=== PATIENT | female | born 1995 | race Caucasian/White ===

== ENCOUNTER 2016-07-10 14:45 | Emergency (ER) | payer BC ==
[~2016-07-10] VITALS: Wt 57.0 kg
[~2016-07-10 14:45] MED LIST: CALC-84 PO; FERR-31 PO; PREN1TAB62 PO
--- NOTE | 2016-07-10 15:19 | ERD ---
ER Documentation Chief Complaint Date/Time DATE: 07/10/16 TIME: 15:16 Chief Complaint vag bleed for 1 day 8 wks preg. mild abd cramping HPI Patient is a 20-year-old female who presents to the ED with vaginal bleeding and pelvic pain. She is , last normal menstrual period was 05/05/17. She states that she developed light bleeding last night and mild pelvic pain. She states that she has not filled 1 pad yet of blood. She denies fever or chills. She denies nausea, vomiting or diarrhea. She denies abdominal pain. She denies chest pain, cough or shortness of breath. She denies leg pain or swelling. She has no other complaints today. Patient does have an OB doctor but is unsure of name and name of clinic. ROS All systems reviewed and are negative except as per history of present illness. Medications Home Meds Active Scripts Nitrofurantoin Monohyd Macrocr* (Macrobid*) 100 Mg Capsr, 100 MG PO BID for 5 Days, CAP Prov:EBEN GIRALDO PA-C 07/10/16 Reported Medications Ferrous Sulfate (Iron Supplement) 1 Tab Tablet, 1 TAB PO DAILY 04/24/15 Calcium Carbonate-Vitamin D3 (Calcium 500 + D Tablet) 1 Each Tablet, 1 TAB PO DAILY, TAB 02/15/14 Vit-Iron Fumarate-FA ( Vitamin Tablet) 1 Each Tablet, 1 TAB PO DAILY, TAB 02/15/14 Allergies Allergies: Coded Allergies: No Known Allergy (Unverified , 02/15/14) PMhx/Soc Medical and Surgical Hx: pt denies Medical Hx, pt denies Surgical Hx History of Surgery: No Anesthesia Reaction: No Hx Neurological Disorder: No Hx Respiratory Disorders: No Hx Cardiac Disorders: No Hx Psychiatric Problems: No Hx Miscellaneous Medical Probl: No Hx Alcohol Use: No Hx Substance Use: No Hx Tobacco Use: No Smoking Status: Never smoker Physical Exam Vitals Vital Signs Date Time Temp Pulse Resp B/P Pulse Ox O2 Delivery O2 Flow Rate FiO2 07/10/16 14:51 97.9 105 20 112/65 98 Physical Exam GENERAL: Well-developed, well-nourished female. Appears in no acute distress. HEAD: Normocephalic, atraumatic. EYES: Pupils are equally reactive bilaterally. EOMs grossly intact. No conjunctival erythema. ENT: Moist mucous membranes. No uvula deviation. No kissing tonsils. No exudates. NECK: Supple. No lymphadenopathy or thyromegaly. No meningismus. negative kernig. negative brudinski. LUNG: Clear to auscultation bilaterally. No rhonchi, wheezing, rales or coarse breath sounds. HEART: Regular rate and rhythm. No murmurs, rubs or gallops. ABDOMEN: No scars, ecchymosis or rashes noted. Soft, nontender, and nondistended. Positive bowel sounds in all four quadrants. No rebound tenderness , no guarding. (-) McBurneys point tenderness. No CVA tenderness. BACK: No midline tenderness. Extremities: Equal pulses bilaterally. No peripheral clubbing, cyanosis or edema. No unilateral leg swelling. NEUROLOGIC: Alert and oriented. Moving all four extremities. 5/5 strength in all extremities. Normal speech. Steady gait. SKIN: Normal color. Warm and dry. No rashes or lesions. Capillary refill < 2 seconds Result Diagram: 07/10/16 1505 Results 24 hrs Laboratory Tests Test 07/10/16 15:05 Basophils # 0.110^3/ul Basophils % 0.7% Beta HCG, Quantitative 31274.0mIU/ml Eosinophils # 0.210^3/ul Eosinophils % 2.7% Hematocrit 40.5% Hemoglobin 13.5g/dl Lymphocytes # 2.010^3/ul Lymphocytes % 25.3% Mean Corpuscular Hemoglobin 29.2pg Mean Corpuscular Hemoglobin Concent 33.4g/dl Mean Corpuscular Volume 87.3fl Mean Platelet Volume 10.4fl Monocytes # 0.310^3/ul Monocytes % 4.2% Neutrophils # 5.310^3/ul Neutrophils % 67.1% Nucleated Red Blood Cells # 0.010^3/ul Nucleated Red Blood Cells % 0.0/100WBC Platelet Count 61732^3/UL Red Blood Count 4.6410^6/ul Red Cell Distribution Width 13.8% Urine Bacteria MODERATE Urine Bilirubin NEGATIVE Urine Clarity CLOUDY Urine Color YELLOW Urine Glucose NEGATIVE% Urine Hemoglobin 3+ Urine Ketones NEGATIVE Urine Leukocyte Esterase TRACE Urine Microscopic RBC 5-10/HPF Urine Microscopic WBC 5-10/HPF Urine Nitrite NEGATIVE Urine Specific Teller 1.025 Urine Squamous Epithelial Cells MANY Urine Total Protein TRACE Urine Urobilinogen 0.2 E.U./dL Urine pH 6.0 White Blood Count 7.910^3/ul Procedures/MDM ER COURSE: I kept the patient and/or family informed of laboratory and diagnostic imaging results throughout the emergency room course. EKG, MONITORS, & DIAGNOSTIC IMAGING: [place] [id number] Radiology Main Line: [phone] DIAGNOSTIC IMAGING REPORT Patient: AEBBA GRAHAM : 1995 Age: 20 Sex: F MR #: [id number] DOS: 07/10/16 1503 Ordering MD: EBEN GIRALDO PA-C Location: [facility] Room/Bed: PROCEDURE: US Pelvis. CLINICAL INDICATION: vaginal bleeding TECHNIQUE: Multiple sonographic images of the pelvis were obtained utilizing a transabdominal and endovaginal technique. The images were reviewed on a PACS workstation. COMPARISON: None. FINDINGS: There is a cystic structure within the endometrium measuring 2.0 cm which would correspond to a calculated gestational age of 6 weeks and 6 days. There is a questionable pole measuring 0.2 cm. A yolk sac is not definitely visualized. There is a large complex hypoechoic area adjacent gestational sac, measuring 3.8 cm, consistent with subchorionic hemorrhage. The right ovary measures 3.1 x 1.8 x 2.0 cm. The left ovary was not visualized. No significant free fluid is present within the pelvis. RPTAT: AA IMPRESSION: Cystic structure within the endometrium corresponding to a 6 weeks and 6 days gestation. A questionable pole is seen. No yolk sac is visualized. The findings likely represent a nonviable . Large area of subchorionic hemorrhage. Left ovary not visualized. Close followup ultrasound and hCG is recommended. .Alexander Pino MD, MD Date Time Electronically viewed and signed by .Alexander Pino MD, MD on 07/10/2016 16: 28 .S/ CC: EBEN GIRALDO PA-C LAB INTERPRETATION: CBC showed no evidence of systemic infection or severe anemia. UA showed trace leukocytes, no nitrites BHC.0 RH: O+ MEDICAL DECISION MAKING: This is a 20-year-old female who presents with vaginal bleeding and pelvic pain. Vital signs were reviewed. Patient is afebrile. Patient is not hypoxic. Patient's ultrasound revealed possible nonviable . Low suspicion for ovarian torsion, PID, tuboovarian abscess, ectopic , bowel obstruction, pyelonephritis,appendicitis, UTI, nephroliathisis, septic stone, obstructed stone. Low suspicion for ectopic , , molar , endometriosis, PID, placenta previa, placenta abruptia, preeclampsia , eclampsia, anemia, endometritis, cervicitis. DISCHARGE: At this time, patient is stable for discharge and outpatient management with no new complaints during the ER course. Patient sent home with macrobid Patient to follow-up with her OB doctor in 2 days or return to the ED in 2 days for recheck of BHCG and ultrasound Patient will be discharged home with instructions to recheck for new or worsening symptoms such as fever, nausea, weakness, LOC and to follow up with primary care in the next 1-2 days. Patient was advised to return to the ER for any new or worsening symptoms. Plan was discussed and patient and/or family understands and agrees. Home instructions were given. Departure Diagnosis: Primary Impression: Vaginal bleeding in patient at less than 20 weeks gestation Condition: Stable EBEN GIRALDO PA-C Jul 10, 2016 15:19
[2016-07-10 15:36] LABS: BASOPHIL # 0.1 10^3/ul (0.0-0.1); BASOPHILS % 0.7 % (0.0-2.0); EOSINOPHILS # 0.2 10^3/ul (0.0-0.5); EOSINOPHILS % 2.7 % (0.0-7.0); HEMATOCRIT 40.5 % (37.0-47.0); HEMOGLOBIN 13.5 g/dl (12.0-16.0); LYMPHOCYTES % 25.3 % (18.0-55.0); MEAN CORPUSCULAR HEMOGLOBIN 29.2 pg (29.0-33.0); MEAN CORPUSCULAR HGB CONC 33.4 g/dl (32.0-37.0); MEAN CORPUSCULAR VOLUME 87.3 fl (72.0-104.0); MEAN PLATELET VOLUME 10.4 fl (7.4-10.4); MONOCYTE # 0.3 10^3/ul (0.3-0.9); MONOCYTES % 4.2 % (0.0-13.0); NEUTROPHIL # 5.3 10^3/ul (1.6-7.5); NEUTROPHILS % 67.1 % (30.0-74.0); PLATELET COUNT 209 10^3/UL (140-440); RED BLOOD COUNT 4.64 10^6/ul (4.20-5.40); RED CELL DISTRIBUTION WIDTH 13.8 % (11.5-14.5); UNCORRECTED WBC 7.9 10^3/ul (4.8-10.8); WHITE BLOOD COUNT 7.9 10^3/ul (4.8-10.8)
[2016-07-10 15:44] LABS: CONDITION 1
[2016-07-10 15:48] LABS: ADD UMIC YES; URINE BILIRUBIN (Dip) NEGATIVE (NEGATIVE); URINE BLOOD (Dip) 3+ (NEGATIVE); URINE GLUCOSE (Dip) NEGATIVE (NEGATIVE); URINE KETONES (Dip) NEGATIVE (NEGATIVE); URINE LEUKOCYTE ESTERASE (Dip) TRACE (NEGATIVE); URINE NITRITE (Dip) NEGATIVE (NEGATIVE); URINE TOTAL PROTEIN (Dip) TRACE (NEGATIVE); URINE UROBILINOGEN (Dip) 0.2 E.U./dL (0.1-1.0)
[2016-07-10 16:01] LABS: URINE COLOR YELLOW (YELLOW)
[2016-07-10 16:04] LABS: BACTERIA,URINE MODERATE; SQUAMOUS EPITHELIAL CELL,UR MANY
--- NOTE | 2016-07-10 16:29 | RADRPT ---
PROCEDURE: US Pelvis. CLINICAL INDICATION: vaginal bleeding TECHNIQUE: Multiple sonographic images of the pelvis were obtained utilizing a transabdominal and endovaginal technique. The images were reviewed on a PACS workstation. COMPARISON: None. FINDINGS: There is a cystic structure within the endometrium measuring 2.0 cm which would correspond to a calc ulated gestational age of 6 weeks and 6 days. There is a questionable pole measuring 0.2 cm. A yolk sac is not definitely visualized. There is a large complex hypoechoic area adjacent gestational sac, measuring 3.8 cm, consistent with subchorionic hemorrhage. The right ovary measures 3.1 x 1.8 x 2.0 cm. The left ovary was not visualized. No significant free fluid is present within the pelvis. RPTAT: AA IMPRESSION: Cystic structure within the endometrium corresponding to a 6 weeks and 6 days gestation. A question able pole is seen. No yolk sac is visualized. The findings likely represent a nonviable preg demario. Large area of subchorionic hemorrhage. Left ovary not visualized. Close followup ultrasound and hCG is recommended. .Alexander Pino MD, MD Date Time Electronically viewed and signed by .Alexander Pino MD, on 07/10/2016 16:28 .S/
[2016-07-10] MEDS ORDERED: NITR-58 PO (16:58)
== END 2016-07-10 17:03 | disposition home or self-care (01) ==
LOC: FTE 14:45
DX: O20.9 Hemorrhage in early pregnancy, unspecified (principal); R10.2 Pelvic and perineal pain; Z3A.01 Less than 8 weeks gestation of pregnancy
CPT/HCPCS: 36415; 76801; 76817; 81001; 81003; 84702; 85025; 86900; 86901

== ENCOUNTER 2016-07-10 21:25 | Emergency (ER) | payer BC ==
[~2016-07-10] VITALS: Ht 162.6 cm; Wt 59.0 kg
[~2016-07-10 21:25] MED LIST changes: +NITR-58 PO
[2016-07-10 21:27] VITALS: Ht 162.6 cm; Wt 59.0 kg
[2016-07-10] MEDS ORDERED: ACETAMINOPHEN 325 MG TAB PO ONE (22:00)
[2016-07-10 22:31] LABS: BASOPHILS % 0.4 % (0.0-2.0); EOSINOPHILS # 0.3 10^3/ul (0.0-0.5); EOSINOPHILS % 3.3 % (0.0-7.0); HEMATOCRIT 36.6 % (37.0-47.0); HEMOGLOBIN 12.4 g/dl (12.0-16.0); LYMPHOCYTES # 2.7 10^3/ul (0.8-2.9); LYMPHOCYTES % 29.5 % (18.0-55.0); MEAN CORPUSCULAR HEMOGLOBIN 29.4 pg (29.0-33.0); MEAN CORPUSCULAR HGB CONC 33.9 g/dl (32.0-37.0); MEAN CORPUSCULAR VOLUME 86.6 fl (72.0-104.0); MEAN PLATELET VOLUME 10.5 fl (7.4-10.4); MONOCYTE # 0.5 10^3/ul (0.3-0.9); MONOCYTES % 5.1 % (0.0-13.0); NEUTROPHIL # 5.7 10^3/ul (1.6-7.5); NEUTROPHILS % 61.7 % (30.0-74.0); PLATELET COUNT 202 10^3/UL (140-440); RED BLOOD COUNT 4.23 10^6/ul (4.20-5.40); RED CELL DISTRIBUTION WIDTH 13.4 % (11.5-14.5); UNCORRECTED WBC 9.2 10^3/ul (4.8-10.8); WHITE BLOOD COUNT 9.2 10^3/ul (4.8-10.8)
[2016-07-10 22:34] LABS: CONDITION 1
--- NOTE | 2016-07-10 22:48 | ERD ---
ER Documentation Chief Complaint Date/Time DATE: 07/10/16 TIME: 22:46 Chief Complaint 7 wks , vag bleeding w/pelvic and back pain HPI 20-year-old female last menstrual period 05/05/2016 she is 3 comes in with increased vaginal bleeding and new-onset of pelvic pain after being discharged earlier today. Patient apparently had a abnormal ultrasound, she went home and she developed sharp pelvic pain, and heavy vaginal bleeding including passing of clots. She states that she has had to change her pad approximately every 30 minutes. She has not had any fevers or chills, nausea, vomiting. ROS All systems reviewed and are negative except as per history of present illness. Medications Home Meds Active Scripts Nitrofurantoin Monohyd Macrocr* (Macrobid*) 100 Mg Capsr, 100 MG PO BID for 5 Days, CAP Prov:EBEN GIRALDO PA-C 07/10/16 Reported Medications Ferrous Sulfate (Iron Supplement) 1 Tab Tablet, 1 TAB PO DAILY 04/24/15 Calcium Carbonate-Vitamin D3 (Calcium 500 + D Tablet) 1 Each Tablet, 1 TAB PO DAILY, TAB 02/15/14 Vit-Iron Fumarate-FA ( Vitamin Tablet) 1 Each Tablet, 1 TAB PO DAILY, TAB 02/15/14 Allergies Allergies: Coded Allergies: No Known Allergy (Unverified , 02/15/14) PMhx/Soc Medical and Surgical Hx: pt denies Medical Hx, pt denies Surgical Hx History of Surgery: No Anesthesia Reaction: No Hx Neurological Disorder: No Hx Respiratory Disorders: No Hx Cardiac Disorders: No Hx Psychiatric Problems: No Hx Miscellaneous Medical Probl: No Hx Alcohol Use: No Hx Substance Use: No Hx Tobacco Use: No Smoking Status: Never smoker Physical Exam Vitals Vital Signs Date Time Temp Pulse Resp B/P Pulse Ox O2 Delivery O2 Flow Rate FiO2 07/10/16 21:27 97.7 104 20 110/67 100 Physical Exam General: Well-developed, well-nourished. The patient appears in no acute distress. HEENT: Head is normocephalic, atraumatic. No scleral icterus. Neck: Supple. Nontender. Lungs: Clear to auscultation. Normal air movement. Heart: Regular rate and rhythm. S1 and S2 are normal. No murmurs, gallops, or rubs. Abdomen: Soft, mild suprapubic tenderness nondistended. Bowel sounds are normoactive. Extremities: No clubbing or cyanosis. Normal pulses. Moving extremities x 4. No weakness. Neurologic: Alert and oriented 3. No focal deficits. Skin: Normal turgor. No rash or lesions. Result Diagram: 07/10/162201 Results 24 hrs Laboratory Tests Test 07/10/16 22:02 07/10/16 22:21 Basophils # 0.010^3/ul Basophils % 0.4% Beta HCG, Quantitative 00094.0mIU/ml Blood Morphology Comment Eosinophils # 0.310^3/ul Eosinophils % 3.3% Hematocrit 36.6% Hemoglobin 12.4g/dl Lymphocytes # 2.710^3/ul Lymphocytes % 29.5% Mean Corpuscular Hemoglobin 29.4pg Mean Corpuscular Hemoglobin Concent 33.9g/dl Mean Corpuscular Volume 86.6fl Mean Platelet Volume 10.5fl Monocytes # 0.510^3/ul Monocytes % 5.1% Neutrophils # 5.710^3/ul Neutrophils % 61.7% Nucleated Red Blood Cells # 0.010^3/ul Nucleated Red Blood Cells % 0.0/100WBC Platelet Count 93376^3/UL Red Blood Count 4.2310^6/ul Red Cell Distribution Width 13.4% White Blood Count 9.210^3/ul Urine Bacteria OCCASIONAL Urine Bilirubin NEGATIVE Urine Clarity CLOUDY Urine Color LT. YELLOW Urine Glucose NEGATIVE% Urine Hemoglobin 3+ Urine Ketones NEGATIVE Urine Leukocyte Esterase NEGATIVE Urine Microscopic RBC >200/HPF Urine Microscopic WBC 0-2/HPF Urine Nitrite NEGATIVE Urine Specific [place] <=1.005 Urine Squamous Epithelial Cells OCCASIONAL Urine Total Protein TRACE Urine Urobilinogen 0.2 E.U./dL Urine pH 6.5 Current Medications Medications (Trade) Dose Ordered Sig/Corrina Route PRN Reason Start Time Stop Time Status Last Admin Dose Admin Acetaminophen (Tylenol Tab) 650 mg ONCE ONCE PO 07/10/16 22:00 07/10/16 22:01 DC 07/10/16 22:43 PROCEDURE: Ultrasound pelvis. CLINICAL INDICATION: Vaginal hemorrhage with . TECHNIQUE: Ultrasound examination of . COMPARISON: Today, about 7 hours ago. FINDINGS: Previously identified 5-uhvq-8-day intrauterine on today's examination , about 7 hours ago, is not seen, suggesting a completed . The endometrium is heterogeneous, otherwise nonspecific. Right ovary is unremarkable. Left ovary is not seen. No free fluid or adnexal mass. IMPRESSION: 1. Previously seen seen on examination 7 hours ago is not identified. 2. Findings suggest a completed . RPTAT: [facility]U Physician Briseida Date Time Electronically viewed and signed by Juliano Vizcaino Physician on 07/10/2016 22:59 RS/ CC: SASHA HERNANDEZ PA-C Procedures/[facility] 20-year-old female comes in with increased vaginal bleeding and pelvic pain, pelvic ultrasound was consistent with a complete compared to previous ultrasound that was done earlier today. She does not show any anemia, hemodynamic instability, infection. She was advised to follow-up with her OB early next week and to return if she has any worsening pain or bleeding. Departure Diagnosis: Primary Impression: Miscarriage Condition: Good SASHA HERNANDEZ PA-C Jul 10, 2016 22:48
--- NOTE | 2016-07-10 22:59 | RADRPT ---
PROCEDURE: Ultrasound pelvis. CLINICAL INDICATION: Vaginal hemorrhage with . TECHNIQUE: Ultrasound examination of . COMPARISON: Today, about 7 hours ago. FINDINGS: Previously identified 7-hbdi-3-day intrauterine on today's examination, about 7 hours ago, is not seen, suggesting a completed . The endometrium is heterogeneous, otherwise nonspecific. Right ovary is unremarkable. Left ovary i s not seen. No free fluid or adnexal mass. IMPRESSION: 1. Previously seen seen on examination 7 hours ago is not identified. 2. Findings suggest a completed . RPTAT: [facility] Physician Briseida Date Time Electronically viewed and signed by Physician Briseida on 07/10/2016 22:59 RS/
[2016-07-10 23:13] LABS: ADD UMIC YES; URINE BILIRUBIN (Dip) NEGATIVE (NEGATIVE); URINE BLOOD (Dip) 3+ (NEGATIVE); URINE COLOR LT. YELLOW (YELLOW); URINE GLUCOSE (Dip) NEGATIVE (NEGATIVE); URINE KETONES (Dip) NEGATIVE (NEGATIVE); URINE LEUKOCYTE ESTERASE (Dip) NEGATIVE (NEGATIVE); URINE NITRITE (Dip) NEGATIVE (NEGATIVE); URINE TOTAL PROTEIN (Dip) TRACE (NEGATIVE); URINE UROBILINOGEN (Dip) 0.2 E.U./dL (0.1-1.0)
[2016-07-10 23:29] LABS: BACTERIA,URINE OCCASIONAL; SQUAMOUS EPITHELIAL CELL,UR OCCASIONAL; URINE RBCS >200 /HPF (0)
[2016-07-10 23:59] VITALS: BP 112/65; PULSE 72; RESP 20; TEMP 98.3
== END 2016-07-11 | disposition home or self-care (01) ==
LOC: FTE 21:25
DX: O03.9 Complete or unspecified spontaneous abortion without complication (principal); R10.2 Pelvic and perineal pain
CPT/HCPCS: 36415; 76801; 81001; 84702; 85025; Z7502; Z7610; 81003

== ENCOUNTER 2018-10-13 01:56 | Emergency (ER) | payer BC ==
[~2018-10-13] VITALS: Ht 162.6 cm; Wt 71.4 kg
[~2018-10-13 01:56] MED LIST changes: +CALC-662 PO; -CALC-84 PO
[2018-10-13 02:00] VITALS: BP 113/72; PULSE 94; RESP 16; Ht 162.6 cm; Wt 71.4 kg
--- NOTE | 2018-10-13 05:27 | ERD ---
ER Documentation Chief Complaint Chief Complaint pt reports approx 6wks preg and having heavy bleeding HPI This is a 22-year-old female -0-1-3 who presents at roughly 6 weeks with complaints of vaginal bleeding since this morning. Last menstrual period was September 04, 2017. Admits to going through 2 pads today. Denies passing any clots. Admits to some lower pelvic cramping associated with vaginal bleeding. Admits to nausea with a couple episodes of nonbilious nonbloody vomiting. Denies fever, chills, diarrhea, constipation, hematemesis, hemoptysis, vaginal pain, severe abdominal pain, dysuria, hematuria, shortness of breath, trouble breathing and all other symptoms. Has not followed up with [facility] specialist. No history of ectopic . ROS All systems reviewed and are negative except as per history of present illness. Medications Home Meds Active Scripts Nitrofurantoin Monohyd Macrocr* (Macrobid*) 100 Mg Capsr, 100 MG PO BID for 5 Days, CAP Prov:EBEN GIRALDO PA-C 07/10/16 Reported Medications Ferrous Sulfate (Iron Supplement) 1 Tab Tablet, 1 TAB PO DAILY 04/24/15 Calcium Carbonate-Vitamin D3 (Calcium 500 + D Tablet) 1 Each Tablet, 1 TAB PO DAILY, TAB 02/15/14 Vit-Iron Fumarate-FA ( Vitamin Tablet) 1 Each Tablet, 1 TAB PO DAILY, TAB 02/15/14 Allergies Allergies: Coded Allergies: No Known Allergy (Unverified , 02/15/14) PMhx/Soc Medical and Surgical Hx: pt denies Medical Hx, pt denies Surgical Hx History of Surgery: No Anesthesia Reaction: No Hx Neurological Disorder: No Hx Respiratory Disorders: No Hx Cardiac Disorders: No Hx Psychiatric Problems: No Hx Miscellaneous Medical Probl: No Hx Alcohol Use: No Hx Substance Use: No Hx Tobacco Use: No Smoking Status: Never smoker FmHx Family History: No diabetes Physical Exam Vitals Vital Signs Date Temp Pulse Resp B/P (MAP) Pulse Ox O2 O2 Flow FiO2 Time Delivery Rate 10/13/18 98.1 94 16 113/72 99 02:00 (86) Physical Exam Physical Exam Vitals signs: Reviewed by me. General: Well developed, well nourished, in no acute distress. Patient is awake and alert. Head: Normocephalic, atraumatic. Eyes: Normal conjunctiva, Pupils PERRLA, EOM intact grossly ENT: Pharynx is clear, Moist mucous membranes, external ears, nose and mouth normal Neck: Supple, no masses, lymphadenopathy or JVD Respiratory: Clear to auscultation bilaterally with no wheezing, rhonchi, rales, no distress Cardiovascular: RRR, no murmurs, rubs, or gallops Abdominal: Soft, nondistended, no peritoneal signs, no rigidity, no surgical abdomen, bowel sounds present all 4 quadrants, nontender lengthy palpation all 4 quadrants, no suprapubic tenderness, McBurney's point nontender, no rebound tenderness Back: No midline tenderness. No flank tenderness Neurologic: Alert and oriented, moving all extremities, normal speech, no focal weakness, no cerebellar signs. Normal mentation Skin: warm and dry, No rash Psych: Normal mood Result Diagram: 10/13/18 0414 10/13/18 0414 Results 24 hrs Laboratory Tests Test 10/13/18 04:14 10/13/18 04:18 White Blood Count 9.2 10^3/ul Red Blood Count 4.36 10^6/ul Hemoglobin 12.6 g/dl Hematocrit 37.9 % Mean Corpuscular Volume 86.9 fl Mean Corpuscular Hemoglobin 28.9 pg Mean Corpuscular Hemoglobin Concent 33.2 g/dl Red Cell Distribution Width 12.9 % Platelet Count 278 10^3/UL Mean Platelet Volume 11.7 fl Immature Granulocytes % 0.300 % Neutrophils % 55.3 % Lymphocytes % 36.3 % Monocytes % 6.9 % Eosinophils % 0.8 % Basophils % 0.4 % Nucleated Red Blood Cells % 0.0 /100WBC Immature Granulocytes # 0.030 10^3/ul Neutrophils # 5.1 10^3/ul Lymphocytes # 3.4 10^3/ul Monocytes # 0.6 10^3/ul Eosinophils # 0.1 10^3/ul Basophils # 0.0 10^3/ul Nucleated Red Blood Cells # 0.0 10^3/ul Urine Color CLIF Urine Clarity CLOUDY Urine pH 6.0 Urine Specific [place] 1.031 Urine Ketones NEGATIVE mg/dL Urine Nitrite NEGATIVE mg/dL Urine Bilirubin NEGATIVE mg/dL Urine Urobilinogen 1+ mg/dL Urine Leukocyte Esterase TRACE Lu/ul Urine Microscopic RBC > 182 /HPF Urine Microscopic WBC 18 /HPF Urine Bacteria FEW /HPF Urine Mucus MANY /HPF Urine Hemoglobin 3+ mg/dL Urine Glucose NEGATIVE mg/dL Urine Total Protein 2+ mg/dl Sodium Level 145 mmol/L Potassium Level 3.5 mmol/L Chloride Level 110 mmol/L Carbon Dioxide Level 24 mmol/L Anion Gap 11 Blood Urea Nitrogen 7 mg/dl Creatinine 0.71 mg/dl Est Glomerular Filtrat Rate mL/min > 60 mL/min Glucose Level 109 mg/dl Calcium Level 9.7 mg/dl Total Bilirubin 0.2 mg/dl Direct Bilirubin 0.00 mg/dl Indirect Bilirubin 0.2 mg/dl Aspartate Amino Transf (AST/SGOT) 19 IU/L Alanine Aminotransferase (ALT/SGPT) 15 IU/L Alkaline Phosphatase 53 IU/L Total Protein 7.8 g/dl Albumin 4.3 g/dl Globulin 3.50 g/dl Albumin/Globulin Ratio 1.22 Beta HCG, Quantitative 40.6 mIU/ml POC Beta HCG, Qualitative POSITIVE Procedures/MDM EKG, MONITORS, & DIAGNOSTIC IMAGING: [place] [id number] Radiology Main Line: [phone] DIAGNOSTIC IMAGING REPORT Patient: ABEBA GRAHAM : 1995 Age: 22 Sex: F MR #: [id number] DOS: 10/13/18 0350 Ordering MD: MARA MARCOS PA-C Location: [facility] Room/Bed: PROCEDURE: US OB. CLINICAL INDICATION: Heavy vaginal bleeding. Positive test. LMP 09/04/18. TECHNIQUE: Transabdominal and transvaginal views of the pelvis are available for review. COMPARISON: US PELVIS 07/10/2016 FINDINGS: Uterine size was not provided, by my measurement is approximately 8.3 cm in length by 5.8 cm transverse by 4.4 cm AP. The endometrial stripe is uniform in appearance, by my measurement 12-13 mm in thickness on endovaginal imaging. There is no intrauterine gestational sac seen. The ovaries are symmetric and size and appearance. Right ovary measures 2.8 x 2.1 x 1.9 cm on transabdominal imaging. Left ovary measures 2.8 x 1.9 x 1.6 cm on endovaginal imaging. There is color and Doppler flow present within both ovaries. No separate adnexal mass or free fluid. IMPRESSION: No evidence of intrauterine gestation, adnexal mass or free fluid seen. In the setting of a positive test, differential could include very early gestational age or ongoing spontaneous ; an ectopic gestation is not excluded at this time. Recommend serial beta HCG levels , and short-term follow-up ultrasound could be obtained to further evaluate. Results were called to the ordering clinician Mara Marcos at time of dictation 0550 hours PST. RPTAT: [facility]SA[facility] Physician Lorenzo Date Time Electronically viewed and signed by Physician Lorenzo on 10/13/2018 05:52 RF/ CC: MARA MARCOS PA-C [id number] LAB INTERPRETATION: CBC shows no evidence of hemorrhage or infection Chemistry shows no evidence of significant electrolyte abnormalities or renal insufficiency Liver function test shows no evidence of acute biliary or hepatic dysfunction Urine positive Beta-hCG 40.6 Urinalysis remarkable for 18 WBCs, RBCs, trace leukocyte esterase, no nitrite Blood type O+ ER COURSE: Patient was offered Tylenol for pain but declines. The patient was stable throughout ED course. I kept the patient and/or family informed of laboratory and diagnostic imaging results throughout the emergency room course. The patient was promptly evaluated and a treatment plan was devised based on H&P and other data. This plan was discussed with the patient who agreed and had no further questions or concerns prior to discharge. MEDICAL DECISION MAKING: This is a 22 year-old female, G 5 p 3013, who presents with vaginal bleeding at roughly 6 weeks . Differentials include Intrauterine , early , threatened , spontaneous , missed or ectopic . Ultrasound does not confirms an intrauterine and states that this could possibly an early , missed or ectopic pregnanc y. Ectopic not visualized on ultrasound. Given patient's low hCG reading in the emergency department at four 0.6 I have a higher suspicion that this is a missed . This was discussed with patient. Patient is O+ and does not require any rhogam. Pt is hemodynamically stable. No symptoms of dehydration. Low suspicious for sepsis. Patient will need to repeat quantitative hCG in the next 48-72 days to show a upward trend as well as have a repeat ultrasound in the next 48-72 hours. Advise for patient either return to the ER for repeat quantitative hCG/us or to follow-up with her [facility] doctor for this. At this time there is no [facility] emergency. Advised to return to ER with any worsening symptoms. DISPOSITION PLAN: We discussed follow up with the patient's primary care doctor within 24 to 48 hours. Patient counseled regarding my diagnostic impression and care plan. Pr ior to discharge all questions answered. Pt agrees with treatment plan and understands strict return precautions. Precautionary instructions provided including instructions to return to the ER if not improving or for any worsening or changing symptoms or concerns. SPECIALIST FOLLOW UP RECOMMENDED: obgyn Patient has been advised to follow up with primary care in 1-2 days. Disclaimer: Inadvertent spelling and grammatical errors are likely due to EHR/dictation software use and do not reflect on the overall quality of patient care. Also, please note that the electronic time recorded on this note does not necessarily reflect the actual time of the patient encounter. Departure Diagnosis: Primary Impression: Threatened in first trimester Condition: Stable Patient Instructions: Possible Miscarriage (Threatened ) Referrals: [facility] REFERRAL LIST [facility] Additional Instructions: You will need to return to the emergency department in 48 to 72 hours or be seen by her primary care physician or OB specialist to have repeat blood work and possibly a repeat ultrasound Patient advised to return to the ED immediately for new or worsening symptoms. Patient advised to follow up with primary care provider in the next 24-48 hours. Patient verbalized understanding and agrees with treatment plan and course of action. If patient has no primary care they may follow up with one of the community clinics listed on the following page or one of the options listed below [facility] [address] [place] [id number] or [facility] [address] [place] [address] or [facility] [address] [place] [address] MARA MARCOS PA-C Oct 13, 2018 05:27
[2018-10-13] MEDS ORDERED: CEPH-443 PO (05:56)
== END 2018-10-13 06:08 | disposition home or self-care (01) ==
LOC: FTE 01:56
DX: O20.0 Threatened abortion (principal); Z3A.01 Less than 8 weeks gestation of pregnancy
CPT/HCPCS: 36415; 76801; 76817; 80053; 81001; 81025; 84702; 85025; 86900; 86901

== ENCOUNTER 2018-12-21 02:58 | Emergency (ER) | payer SELFPAY ==
[~2018-12-21] VITALS: Ht 160 cm; Wt 64.3 kg
[~2018-12-21 02:58] MED LIST changes: +CEPH-443 PO
[2018-12-21 03:01] VITALS: Ht 160 cm; Wt 64.3 kg
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
[2018-12-21] MEDS ORDERED: LIDOCAINE 1% (MDV) 20 ML INJ SC ONE (04:30)
[2018-12-21] MEDS ORDERED: AMOX1TAB10 PO (04:36)
[2018-12-21] MEDS ORDERED: ACET500C5 PO (04:37)
[2018-12-21] MEDS ORDERED: AMOXICILLIN/CLAV 875 MG TAB PO ONE (05:00)
[2018-12-21 05:22] VITALS: BP 119/67; PULSE 90; RESP 19
[2018-12-21] MEDS ORDERED: BACITRACIN 0.9 GM OINT TOP ONE (05:30)
== END 2018-12-21 05:30 | disposition home or self-care (01) ==
LOC: FTE 02:58
DX: S01.112A Laceration without foreign body of left eyelid and periocular area, initial encounter (principal); W20.8XXA Other cause of strike by thrown, projected or falling object, initial encounter; Y92.9 Unspecified place or not applicable
CPT/HCPCS: 70486; 81025